=== PATIENT | female | born 1950 | race Caucasian/White ===

== ENCOUNTER 2018-09-20 05:32 | Day surgery (SDC) | payer MEDICARE, OTHER ==
[~2018-09-20] VITALS: Ht 162.6 cm; Wt 97.1 kg
[~2018-09-20 05:32] MED LIST: ALEN70TA6 PO; CALC1CAP8 PO; CARV12.52 PO; GABA300C10 PO; LOSA50TA14 PO; TRAM50TA2 PO; VERA180C2 PO
[2018-09-20] MEDS ORDERED: LACTATED RINGERS 1,000 ML IV SCH (06:00)
[2018-09-20 06:02] VITALS: BP 131/80
[2018-09-20] MEDS ORDERED: BUPIVACAINE/PF-EPI 0.5% 1:200K ONE (06:27)
[2018-09-20] MEDS ORDERED: BUPIVACAINE/PF 0.5% ONE (06:27)
[2018-09-20] MEDS ORDERED: VANCOMYCIN 1,000 MG ONE (06:28)
[2018-09-20] MEDS ORDERED: THROMBIN 5,000 UNIT VIAL TP ONE (06:28)
[2018-09-20] MEDS ORDERED: BACITRACIN 50,000 UNIT ONE (06:28)
[2018-09-20] MEDS ORDERED: LIDOCAINE-MPF 2% ,5ML ONE (06:41)
[2018-09-20] MEDS ORDERED: PROPOFOL 10 MG/ML, 20ML ONE (06:41)
[2018-09-20] MEDS ORDERED: PHENYLEPHRINE 10 MG/ML ONE (06:42)
[2018-09-20] MEDS ORDERED: WATER-INJECTION,STERILE 10 ML IV ONE (06:43)
[2018-09-20] MEDS ORDERED: MIDAZOLAM 1 MG/ML, 2ML ONE (06:45)
[2018-09-20] MEDS ORDERED: ROCURONIUM 10MG/ML,5ML ONE (06:45)
[2018-09-20] MEDS ORDERED: SUCCINYLCHOLINE 20 MG/ML, 10ML ONE (06:45)
[2018-09-20] MEDS ORDERED: FENTANYL PF 250 MCG/5ML ONE (06:45)
[2018-09-20] MEDS ORDERED: ONDANSETRON 2MG/ML, 2ML ONE ×2 (06:46)
[2018-09-20] MEDS ORDERED: DEXAMETHASONE 4 MG/ML, 1ML ONE ×2 (06:46)
[2018-09-20] MEDS ORDERED: SODIUM CHLORIDE 0.9% PF 10ML ONE (07:21)
[2018-09-20] MEDS ORDERED: GLYCOPYRROLATE 0.4 MG/2 ML, 2ML ONE ×2 (07:22→08:03)
[2018-09-20] MEDS ORDERED: HYDROmorphone 2 MG/ML, 1ML IVPush PRN (07:30)
[2018-09-20] MEDS ORDERED: ACETAMINOPHEN 325 MG TABLET PO PRN (07:30)
[2018-09-20] MEDS ORDERED: OXYcodone 5 MG/5 ML ORAL.SOL UDC PO PRN (07:30)
[2018-09-20] MEDS ORDERED: METHOCARBAMOL 1000MG/10 ML IV PRN (07:30)
[2018-09-20] MEDS ORDERED: PROMETHAZINE 25 MG/ML, 1ML IV PRN (07:30)
[2018-09-20] MEDS ORDERED: hydrALAzine 20 MG/ML, 1ML IV PRN (07:30)
[2018-09-20] MEDS ORDERED: MEPERIDINE/PF 25MG/0.5ML IVPush PRN (07:30)
[2018-09-20] MEDS ORDERED: HALOPERIDOL 5 MG/ML IV PRN (07:30)
[2018-09-20] MEDS ORDERED: NEOSTIGMINE 1 MG/ML, 10ML ONE (08:03)
[2018-09-20] MEDS ORDERED: ACETAMINOPHEN 650 MG/20.3 ML UDC ONE (08:33)
[2018-09-20] MEDS ORDERED: FENTANYL PF 100 MCG/2ML ONE (08:33)
[2018-09-20] MEDS ORDERED: OXYcodone 5 MG/5 ML ORAL.SOL UDC ONE (08:34)
[2018-09-20] MEDS: FENTANYL PF 100 MCG/2ML IV PRN ×3 (08:35→08:52)
[2018-09-20] MEDS ORDERED: MEPERIDINE/PF 25MG/ML,1ML ONE (08:56)
[2018-09-20] MEDS ORDERED: METHOCARBAMOL 1,000 MG in DEXTROSE 5% 100 ML IV ONE (09:00)
== END 2018-09-20 11:35 | disposition home or self-care (01) ==
LOC: OUT 05:32
PROVIDERS: ATTEND Neurological Surgery
DX: M51.16 Intervertebral disc disorders with radiculopathy, lumbar region (principal); M43.16 Spondylolisthesis, lumbar region; M48.061 Spinal stenosis, lumbar region without neurogenic claudication; I10 Essential (primary) hypertension; E11.9 Type 2 diabetes mellitus without complications; K21.9 Gastro-esophageal reflux disease without esophagitis; M19.90 Unspecified osteoarthritis, unspecified site; Z79.899 Other long term (current) drug therapy; Z72.89 Other problems related to lifestyle; Z83.3 Family history of diabetes mellitus; Z82.61 Family history of arthritis
CPT/HCPCS: 63047; 63048; 72100; 82962; J0330; J1100; J2175; J2250; J2370; J2405; J2704; J2710; J2800; J3010; J3370; J7120

== ENCOUNTER 2018-09-20 21:23 | Emergency (ER) | payer MEDICARE, OTHER ==
[~2018-09-20] VITALS: Ht 162.6 cm; Wt 100.3 kg
[2018-09-20 21:59] LABS: MICROSCOPIC NOT IND
--- NOTE | 2018-09-20 22:02 | NUR ---
PT HERE FOR ISSUES OF URINARY INCONTINECE SINCE SURGERY EARLIER TODAY. PT TAKEN TO BATHROOM FOR UA. UA SENT TO LAB. PT TAKING 2 OF RUBEN. MD KELLY. MD AT BEDSIDE
[2018-09-20 22:12] LABS: CULTURE INDICATED? NO
--- NOTE | 2018-09-20 22:29 | NUR ---
PT ASSISTED TO BATHROOM. PT FEELS IF SHE IS CONSTANTLY DRIBBLING. BEDSIDE COMMODE AT BEDSIDE TO MAKE IT EASIER FOR PT. CALL LIGHT IN REACH
--- NOTE | 2018-09-20 23:06 | NUR ---
Patient given discharge instructions and they have confirmed that they understand the instructions. Patient ambulatory with steady gait.
[2018-09-20 23:07] VITALS: BP 142/85
== END 2018-09-20 23:09 | disposition home or self-care (01) ==
LOC: ED 22:45
DX: N39.41 Urge incontinence (principal); N39.43 Post-void dribbling; E11.9 Type 2 diabetes mellitus without complications; I10 Essential (primary) hypertension; Z90.710 Acquired absence of both cervix and uterus; Z90.49 Acquired absence of other specified parts of digestive tract
CPT/HCPCS: 81003; 99283; 99284

== ENCOUNTER → 2019-05-28 | Outpatient (CLI) | payer MEDICARE, OTHER ==
[~2019-05-28] MED LIST changes: +CHOL200024 PO
== END | disposition home or self-care (01) ==
LOC: RAD 11:45
PROVIDERS: ATTEND Neurological Surgery
DX: M51.36 Other intervertebral disc degeneration, lumbar region (principal); M47.817 Spondylosis without myelopathy or radiculopathy, lumbosacral region
CPT/HCPCS: 72131

== ENCOUNTER 2019-05-29 07:00 | Inpatient (IN) | payer MEDICARE, OTHER ==
[~2019-05-29] VITALS: Ht 162.6 cm; Wt 97.0 kg
[~2019-05-29 07:00] MED LIST changes: +BACITRACIN 50,000 UNIT ONE; +BUPIVACAINE/PF 0.5% ONE; +EPINEPHRINE 1 MG/ML, 1ML ONE; +THROMBIN 5,000 UNIT VIAL TP ONE; +VANCOMYCIN 1,000 MG ONE
[2019-05-29 07:52] VITALS: BP 106/73
[2019-05-29] MEDS ORDERED: MIDAZOLAM 1 MG/ML, 2ML ONE (08:15)
[2019-05-29] MEDS ORDERED: FENTANYL PF 250 MCG/5ML ONE (08:15)
[2019-05-29] MEDS ORDERED: SUGAMMADEX 200 MG/2 ML IVPush ONE (08:39)
[2019-05-29] MEDS ORDERED: ROCURONIUM 10MG/ML,5ML ONE (08:45)
[2019-05-29] MEDS ORDERED: DEXAMETHASONE 4 MG/ML, 1ML ONE (08:45)
[2019-05-29] MEDS ORDERED: WATER-INJECTION,STERILE 10 ML IV ONE (08:45)
[2019-05-29] MEDS ORDERED: PROPOFOL 10 MG/ML, 20ML ONE (08:45)
[2019-05-29] MEDS ORDERED: LIDOCAINE-MPF 2% ,5ML ONE (08:45)
[2019-05-29] MEDS ORDERED: ONDANSETRON 2MG/ML, 2ML ONE (08:45)
[2019-05-29] MEDS ORDERED: CEFAZOLIN 1,000 MG ONE (08:45)
[2019-05-29] MEDS ORDERED: LACTATED RINGERS 1,000 ML IV SCH (09:00)
[2019-05-29] MEDS ORDERED: PHENYLEPHRINE 10 MG/ML ONE (09:31)
[2019-05-29] MEDS ORDERED: hydrALAzine 20 MG/ML, 1ML IV PRN (10:00)
[2019-05-29] MEDS ORDERED: PROMETHAZINE 25 MG/ML, 1ML IV PRN (10:00)
[2019-05-29] MEDS ORDERED: MEPERIDINE/PF 25MG/ML,1ML IVPush PRN (10:00)
[2019-05-29] MEDS ORDERED: ACETAMINOPHEN 325 MG TABLET PO PRN (10:00)
[2019-05-29] MEDS ORDERED: OXYcodone 5 MG/5 ML ORAL.SOL UDC PO PRN (10:00)
[2019-05-29] MEDS ORDERED: HYDROmorphone 1 MG/ML, 1ML INJ IVPush PRN (10:00)
[2019-05-29] MEDS ORDERED: METHOCARBAMOL 1,000 MG in DEXTROSE 5% 100 ML IV PRN (11:00)
[2019-05-29] MEDS ORDERED: MEPERIDINE/PF 100 MG/ML ONE (12:09)
[2019-05-29] MEDS ORDERED: FENTANYL PF 100 MCG/2ML ONE (13:56)
[2019-05-29] MEDS ORDERED: OXYcodone 5 MG/5 ML ORAL.SOL UDC ONE (13:57)
[2019-05-29] MEDS: FENTANYL PF 100 MCG/2ML IV PRN ×3 (14:00→14:50)
[2019-05-29 15:52] VITALS: BP 91/59
[2019-05-29] MEDS ORDERED: ONDANSETRON 2MG/ML, 2ML IV PRN (16:30)
[2019-05-29] MEDS ORDERED: PROMETHAZINE 25 MG/ML, 1ML IM PRN (16:30)
[2019-05-29] MEDS ORDERED: DIPHENHYDRAMINE 25 MG CAPSULE PO PRN ×2 (16:30)
[2019-05-29] MEDS ORDERED: BISACODYL 10 MG SUPP PR PRN (16:30)
[2019-05-29] MEDS ORDERED: MAGNESIUM HYDROXIDE 8%, 30ML UDC PO PRN ×2 (16:30)
[2019-05-29] MEDS ORDERED: OXYcodone/APAP 5/325MG TABLET PO PRN (16:30)
[2019-05-29] MEDS ORDERED: CEFUROXIME 1.5 GM in SODIUM CHLORIDE 0.9% 50 ML IVPB SCH (16:30)
[2019-05-29] MEDS ORDERED: METHOCARBAMOL 1,000 MG in DEXTROSE 5% 100 ML IV ONE (16:30)
[2019-05-29] MEDS ORDERED: DIPHENHYDRAMINE 50 MG/ML, 1ML IM PRN (16:30)
[2019-05-29] MEDS ORDERED: DIPHENHYDRAMINE 50 MG/ML, 1ML IVPush PRN (16:30)
[2019-05-29] MEDS: GABAPENTIN 300 MG CAPSULE PO SCH ×2 (17:17→20:50)
[2019-05-29] MEDS: CEFAZOLIN PMX 1GM/50ML 50 ML IVPB SCH (17:17)
[2019-05-29] MEDS: CARVEDILOL 12.5 MG TABLET PO SCH (17:17)
[2019-05-29 17:21] VITALS: BP 117/64
[2019-05-29] MEDS: HYDROcodone/APAP 5/325 TABLET PO PRN ×2 (17:43→22:57)
[2019-05-29 19:14] VITALS: BP 87/60
[2019-05-29 19:45] VITALS: BP_SYST 62
[2019-05-29] MEDS: VERAPAMIL ER 180MG TABLET.ER PO SCH (20:49)
[2019-05-29] MEDS: INSULIN REGULAR 100 UNITS/ML, 3ML VIAL SQ-INSULIN SCH (20:49)
[2019-05-29] MEDS: METHOCARBAMOL 750 MG TABLET PO SCH (22:57)
[2019-05-30 00:10] VITALS: BP 114/67
[2019-05-30] MEDS: CEFAZOLIN PMX 1GM/50ML 50 ML IVPB SCH (01:11)
[2019-05-30] MEDS: HYDROcodone/APAP 5/325 TABLET PO PRN ×3 (03:13→20:18)
[2019-05-30 03:44] VITALS: BP 105/68
[2019-05-30 06:34] VITALS: BP 103/64
[2019-05-30] MEDS: CARVEDILOL 12.5 MG TABLET PO SCH ×2 (06:38→16:57)
[2019-05-30] MEDS: METHOCARBAMOL 750 MG TABLET PO SCH ×3 (06:38→23:15)
[2019-05-30] MEDS: INSULIN REGULAR 100 UNITS/ML, 3ML VIAL SQ-INSULIN SCH ×4 (07:00→20:23)
[2019-05-30] MEDS: VERAPAMIL ER 180MG TABLET.ER PO SCH ×2 (08:48→20:18)
[2019-05-30] MEDS: LOSARTAN 50MG TABLET PO SCH (08:48)
[2019-05-30] MEDS: CEFAZOLIN PMX 1GM/50ML 50 ML IV SCH ×3 (08:48→23:15)
[2019-05-30] MEDS: GABAPENTIN 300 MG CAPSULE PO SCH ×3 (08:49→20:18)
[2019-05-30] MEDS: SENNA/DOCUSATE TABLET PO SCH (08:49)
[2019-05-30 16:17] VITALS: BP 103/60
[2019-05-30 19:45] VITALS: BP 124/69
[2019-05-30 20:25] LABS: CLOSTRIDIUM DIFFICILE ANTIGEN NEGATIVE; CLOSTRIDIUM DIFFICILE TOXIN NEGATIVE (Negative)
[2019-05-31] MEDS: HYDROcodone/APAP 5/325 TABLET PO PRN ×2 (00:10→04:04)
[2019-05-31 00:46] VITALS: BP 95/45
[2019-05-31] MEDS: HYDROmorphone 2MG TABLET PO PRN ×3 (01:42→05:54)
[2019-05-31] MEDS: CARVEDILOL 12.5 MG TABLET PO SCH (05:54)
[2019-05-31 05:55] VITALS: BP 102/68
[2019-05-31] MEDS: METHOCARBAMOL 750 MG TABLET PO SCH (06:45)
[2019-05-31] MEDS: INSULIN REGULAR 100 UNITS/ML, 3ML VIAL SQ-INSULIN SCH ×2 (07:00→11:00)
[2019-05-31] MEDS: CEFAZOLIN PMX 1GM/50ML 50 ML IV SCH (07:30)
[2019-05-31 07:54] VITALS: BP 100/65
[2019-05-31] MEDS ORDERED: HYDROcodone/APAP 10/325 MG TABLET PO PRN (08:00)
[2019-05-31] MEDS ORDERED: KETOROLAC 30 MG/1 ML IVPush ONE (08:00)
[2019-05-31] MEDS ORDERED: HYDR-36 PO (08:31)
[2019-05-31] MEDS ORDERED: METH750T87 PO (08:32)
[2019-05-31] MEDS: SENNA/DOCUSATE TABLET PO SCH (09:00)
[2019-05-31] MEDS: LOSARTAN 50MG TABLET PO SCH (09:00)
[2019-05-31] MEDS: GABAPENTIN 300 MG CAPSULE PO SCH (09:14)
[2019-05-31] MEDS: VERAPAMIL ER 180MG TABLET.ER PO SCH (09:14)
[2019-05-31] MEDS ORDERED: METHOCARBAMOL 750 MG TABLET PO PRN (12:00)
== END 2019-05-31 12:18 | disposition home or self-care (01) | DRG 455 ==
LOC: ORIP 07:12 → 4NE 15:40 → DCLOUNGE 05-31 12:00
PROVIDERS: ADMIT Neurological Surgery; ATTEND Neurological Surgery
PROC: 0SG00AJ Fusion of Lumbar Vertebral Joint with Interbody Fusion Device, Posterior Approach, Anterior Column, Open Approach (ICD-10-PCS; 2019-05-29)
PROC: 01NB0ZZ Release Lumbar Nerve, Open Approach (ICD-10-PCS; 2019-05-29)
PROC: 0ST20ZZ Resection of Lumbar Vertebral Disc, Open Approach (ICD-10-PCS; 2019-05-29)
PROC: 0SG0071 Fusion of Lumbar Vertebral Joint with Autologous Tissue Substitute, Posterior Approach, Posterior Column, Open Approach (ICD-10-PCS; principal; 2019-05-29 09:30)
DX: M43.16 Spondylolisthesis, lumbar region (principal); M51.16 Intervertebral disc disorders with radiculopathy, lumbar region; Z68.37 Body mass index [BMI] 37.0-37.9, adult; E66.01 Morbid (severe) obesity due to excess calories; M51.17 Intervertebral disc disorders with radiculopathy, lumbosacral region; M48.07 Spinal stenosis, lumbosacral region; M48.061 Spinal stenosis, lumbar region without neurogenic claudication; M47.26 Other spondylosis with radiculopathy, lumbar region; I10 Essential (primary) hypertension; E11.9 Type 2 diabetes mellitus without complications
CPT/HCPCS: 72100; 72131; 82962; 87324; C1713; G0378; J0171; J0690; J1100; J1885; J2250; J2405; J2704; J3010; J3370; C1760; C1763; J2175; J2370; J2800; J7120

== ENCOUNTER → 2020-09-17 | Outpatient (CLI) | payer MEDICARE, OTHER ==
[~2020-09-17] MED LIST changes: -ALEN70TA6 PO; +ALEN70TA77 PO; -BACITRACIN 50,000 UNIT ONE; -BUPIVACAINE/PF 0.5% ONE; +CALC-534 PO; -EPINEPHRINE 1 MG/ML, 1ML ONE; +HYDR-3248 PO; +METH750T87 PO; +NIAC500C3 PO; -THROMBIN 5,000 UNIT VIAL TP ONE; -VANCOMYCIN 1,000 MG ONE
[2020-09-17 10:42] LABS: BASOPHILS % (AUTO) 1 % (0-1); EOSINOPHILS % (AUTO) 1 % (1-7); LYMPHOCYTES % (AUTO) 18 % (22-44); MEAN CORPUSCULAR HEMOGLOBIN 32.8 pg (27.0-34.8); MEAN CORPUSCULAR HGB CONC 33.6 g/dL (32.4-35.8); MEAN PLATELET VOLUME 10.1 fL (7.4-10.4); MONOCYTES % (AUTO) 9 % (2-9); NEUTROPHILS % (AUTO) 72 % (42-75); PLATELET COUNT 130 x10^3/uL (130-400); RED BLOOD COUNT 4.17 x10^6/uL (3.82-5.3); RED CELL DISTRIBUTION WIDTH 15.7 % (9.6-15.2)
[2020-09-17 10:44] LABS: MD NO
[2020-09-17 10:45] LABS: ALBUMIN 3.1 g/dL (3.4-5.0); ANION GAP 3 mmol/L (5-15); CALCIUM 8.5 mg/dL (8.5-10.1); CHLORIDE 112 mmol/L (98-107); CREATININE 0.82 mg/dL (0.55-1.02)
[2020-09-17 10:46] LABS: INTERNATIONAL NORMALIZED RATIO 0.96 (0.93-1.1); PROTHROMBIN TIME 10.3 Seconds (9.6-11.5)
[2020-09-17 10:48] LABS: ALANINE AMINOTRANSFERASE 29 U/L (12-78); ALKALINE PHOSPHATASE 75 U/L (45-117); BILIRUBIN,TOTAL 1.1 mg/dL (0.2-1.0); TOTAL PROTEIN 6.2 g/dL (6.4-8.2)
[2020-09-17 13:39] LABS: MICROSCOPIC NOT IND
== END | disposition home or self-care (01) ==
LOC: STAR 09:23
PROVIDERS: ATTEND Neurological Surgery
DX: Z01.810 Encounter for preprocedural cardiovascular examination (principal); Z01.811 Encounter for preprocedural respiratory examination; Z01.812 Encounter for preprocedural laboratory examination; M54.16 Radiculopathy, lumbar region; M48.061 Spinal stenosis, lumbar region without neurogenic claudication; R94.31 Abnormal electrocardiogram [ECG] [EKG]; R79.1 Abnormal coagulation profile; R82.90 Unspecified abnormal findings in urine; Z20.822 Contact with and (suspected) exposure to COVID-19
CPT/HCPCS: 36415; 71046; 80053; 81003; 85025; 85610; 85730; 93005; U0003; U0005